=== PATIENT | female | born 1975 | race Asian ===

== ENCOUNTER → 2016-12-02 | Outpatient (CLI) | payer MEDICAID | LOC: FIMAGING 17:41 | PROVIDERS: ATTEND Physician Assistant | DX: M54.5 Low back pain (principal); J40 Bronchitis, not specified as acute or chronic ==

== ENCOUNTER → 2017-07-21 | Outpatient (CLI) | payer MEDICAID | LOC: FIMAGING 10:29 | PROVIDERS: ATTEND Family Medicine | DX: M25.511 Pain in right shoulder (principal) ==

== ENCOUNTER → 2017-08-20 | Outpatient (CLI) | payer MEDICAID | LOC: FIMAGING 19:17 | PROVIDERS: ATTEND Family Medicine | DX: M75.31 Calcific tendinitis of right shoulder (principal); M75.51 Bursitis of right shoulder ==

== ENCOUNTER → 2017-09-01 | Outpatient (CLI) | payer MEDICAID | LOC: FIMAGING 19:22 | PROVIDERS: ATTEND Psychiatry & Neurology Neurology | DX: R56.9 Unspecified convulsions (principal); R93.0 Abnormal findings on diagnostic imaging of skull and head, not elsewhere classified ==

== ENCOUNTER → 2017-09-09 | Outpatient (CLI) | payer MEDICAID ==
--- NOTE | 2017-09-10 19:50 | CPEEG ---
[f rep st] ELECTROENCEPHALOGRAM DATE OF STUDY: 09/09/2017 DATE OF INTERPRETATION: 09/10/2017. INTERPRETATION: This 4-hour video EEG recording is normal. There were no potentially epileptogenic abnormalities present in the awake or sleep recordings. During the monitoring session, the patient d id not have any clinical events. REPORT: This 4-hour video EEG contains 10 Hz alpha activity to the posterior head regions. There wa s no abnormal activation at rest, during photic stimulation or hyperventilation. The patient became drowsy and fell into sustained sleep during the study. There was no abnormal activation during drows iness, sleep or during times of arousal. The patient did not have any clinical events during the vid eo EEG monitoring session. /[id number]/MODL
== END ==
LOC: FCPNEURO 07:58
PROVIDERS: ATTEND Psychiatry & Neurology Neurology
DX: R56.9 Unspecified convulsions (principal)

== ENCOUNTER 2018-08-30 18:25 | Emergency (ER) | payer MEDICAID | END 2018-08-30 22:07 | disposition home or self-care (01) ==